=== PATIENT | male | born 1990 ===

== ENCOUNTER 2025-05-31 09:15 | Inpatient (IN) | payer OTHER, MEDICAID ==
[~2025-05-31] VITALS: Ht 175.3 cm; Wt 65.2 kg
[2025-05-31 10:17] LABS: PLATELET COUNT (AUTO) 364 K/uL (150-450); RED BLOOD CELL COUNT(AUTO) 5.46 MIL/uL (4.50-5.90); RED CELL DISTRIBUTION WIDTH 13.8 % (11.5-14.5); WHITE BLOOD COUNT (AUTO) 7.2 K/uL (4.5-11.0)
[2025-05-31 10:24] LABS: CALCIUM, TOTAL 9.1 mg/dL (8.8-10.5); CREATININE 0.82 mg/dL (0.60-1.30); GLOMERULAR FILTR. RATE CALC > 60 mL/min (>60); GLUCOSE,RANDOM 87 mg/dL (70-110); SODIUM SERUM 135 mmol/L (136-145); UREA NITROGEN, BLOOD 8 mg/dL (7-18)
[2025-05-31 10:31] LABS: ASPARTATE AMINOTRANSFERASE 23 U/L (15-37); CREATINE KINASE, TOTAL ONLY 92 U/L (39-308); TOTAL PROTEIN, SERUM 7.6 g/dL (6.4-8.2)
[2025-05-31 10:35] LABS: TROPONIN I-HIGH SENSITIVITY 5 ng/L (<76)
[2025-05-31 10:39] LABS: ALCOHOL, BLOOD (SERUM) < 3 mg/dL (0-10)
[2025-05-31] MEDS: ASPIRIN 81 MG CHEWABLE TABLET PO ONE (12:14)
[2025-05-31 12:36] LABS: TROPONIN I-HIGH SENSITIVITY 4 ng/L (<76)
[2025-05-31] MEDS: HEPARIN SODIUM,PORCINE 5,000 UNITS/ML VIAL SQ SCH (15:04)
[2025-05-31 16:04] LABS: TROPONIN I-HIGH SENSITIVITY 5 ng/L (<76)
[2025-05-31 17:48] LABS: PH,URINE DRUG SCREEN 5.5 (5.0-8.0)
[2025-05-31 17:54] VITALS: BP 119/76; PULSE 79; RESP 18; TEMP 98.1; O2SAT 98
[2025-05-31 17:56] LABS: AMPHET/METH SCREEN,URINE POSITIVE (NEGATIVE); BARBITURATE SCREEN, URINE NEGATIVE (NEGATIVE); CANNABINOID SCREEN,URINE POSITIVE (NEGATIVE); COCAINE SCREEN,URINE NEGATIVE (NEGATIVE); METHADONE SCREEN, URINE NEGATIVE (NEGATIVE)
[2025-05-31 17:59] LABS: ALCOHOL, URINE DRUG SCREEN NEGATIVE (NEGATIVE)
[2025-05-31 19:50] VITALS: BP 111/71; PULSE 61; RESP 17; TEMP 98.1; O2SAT 100
[2025-05-31] MEDS: DOCUSATE SODIUM 100 MG CAPSULE PO SCH (20:11)
[2025-05-31 20:59] LABS: TROPONIN I-HIGH SENSITIVITY 5 ng/L (<76)
[2025-05-31 23:44] VITALS: BP 122/79; PULSE 66; RESP 22; TEMP 98.2; O2SAT 100
[2025-06-01 03:34] VITALS: BP 94/57; PULSE 69; RESP 17; TEMP 98.1; O2SAT 96
[2025-06-01 04:44] LABS: TROPONIN I-HIGH SENSITIVITY 5 ng/L (<76)
[2025-06-01 05:54] LABS: CALCIUM, TOTAL 9.1 mg/dL (8.8-10.5); CREATININE 0.95 mg/dL (0.60-1.30); GLOMERULAR FILTR. RATE CALC > 60 mL/min (>60); GLUCOSE,RANDOM 93 mg/dL (70-110); SODIUM SERUM 138 mmol/L (136-145); UREA NITROGEN, BLOOD 10 mg/dL (7-18)
[2025-06-01 08:08] LABS: PLATELET COUNT (AUTO) 374 K/uL (150-450); RED BLOOD CELL COUNT(AUTO) 5.85 MIL/uL (4.50-5.90); RED CELL DISTRIBUTION WIDTH 13.5 % (11.5-14.5); WHITE BLOOD COUNT (AUTO) 5.1 K/uL (4.5-11.0)
[2025-06-01 08:27] VITALS: BP 106/63; PULSE 68; RESP 18; TEMP 98; O2SAT 98
[2025-06-01] MEDS: ASPIRIN 81 MG CHEWABLE TABLET PO SCH (08:36)
[2025-06-01] MEDS: ACETAMINOPHEN 325 MG TABLET PO PRN (08:36)
[2025-06-01 11:03] VITALS: BP 104/61; PULSE 68; RESP 18; TEMP 97.9; O2SAT 97
[2025-06-01 15:38] VITALS: BP 102/65; PULSE 64; RESP 18; TEMP 98.1; O2SAT 99
[2025-06-01] MEDS ORDERED: SODIUM CHLORIDE 0.9% 100 ML ONE (15:59)
[2025-06-01] MEDS ORDERED: IOHEXOL 350 MG/ML 100 ML VIAL ONE (15:59)
[2025-06-01] MEDS ORDERED: 0.9% SODIUM CHLORIDE 10 ML SYRINGE IVP ONE (15:59)
[2025-06-01 19:28] VITALS: BP 94/58; PULSE 66; RESP 17; TEMP 98.1; O2SAT 98
[2025-06-01 23:09] VITALS: BP 90/55; PULSE 69; RESP 18; TEMP 97.9; O2SAT 99
[2025-06-02 03:15] VITALS: BP 96/63; PULSE 82; RESP 18; RESP 32; TEMP 98.4; O2SAT 97
[2025-06-02 05:59] LABS: PLATELET COUNT (AUTO) 365 K/uL (150-450); RED BLOOD CELL COUNT(AUTO) 5.61 MIL/uL (4.50-5.90); RED CELL DISTRIBUTION WIDTH 13.6 % (11.5-14.5); WHITE BLOOD COUNT (AUTO) 5.2 K/uL (4.5-11.0)
[2025-06-02 06:10] LABS: CALCIUM, TOTAL 8.7 mg/dL (8.8-10.5); CREATININE 1.00 mg/dL (0.60-1.30); GLOMERULAR FILTR. RATE CALC > 60 mL/min (>60); GLUCOSE,RANDOM 98 mg/dL (70-110); SODIUM SERUM 137 mmol/L (136-145); UREA NITROGEN, BLOOD 11 mg/dL (7-18)
[2025-06-02 08:02] VITALS: BP 101/67; PULSE 68; RESP 18; TEMP 98.1; O2SAT 99
[2025-06-02 12:57] VITALS: BP 98/64; PULSE 71; RESP 18; TEMP 98.4; O2SAT 99
[2025-06-02 16:15] VITALS: BP 99/69; PULSE 80; RESP 14; TEMP 98.4; O2SAT 100
[2025-06-02 19:33] VITALS: BP 94/61; PULSE 80; RESP 17; TEMP 98.2; O2SAT 99
[2025-06-02] MEDS: ONDANSETRON HCL 4 MG/2 ML VIAL IVP PRN (22:01)
[2025-06-03 00:17] VITALS: BP 97/66; PULSE 86; RESP 17; TEMP 98.1; O2SAT 100
[2025-06-03 04:35] VITALS: BP 90/62; PULSE 65; RESP 17; TEMP 98.2; O2SAT 98
== END 2025-06-03 07:00 | DRG 313 ==
LOC: EMS 09:15 → EDH 11:53 → 5S 17:30
PROVIDERS: ADMIT Internal Medicine; ATTEND Internal Medicine
DX: R07.89 Other chest pain (principal); F19.90 Other psychoactive substance use, unspecified, uncomplicated; F17.200 Nicotine dependence, unspecified, uncomplicated; D72.0 Genetic anomalies of leukocytes; J45.909 Unspecified asthma, uncomplicated; Z82.49 Family history of ischemic heart disease and other diseases of the circulatory system; Z63.4 Disappearance and death of family member
CPT/HCPCS: 71045; 71275; 80048; 80076; 80307; 82550; 83735; 83880; 84484; 85025; 93005; 93306; 99285; G0480; J1644; J2405; J7050; 36415-L1; 36415-TC